=== PATIENT | female | born 1985 | race Caucasian/White ===

== ENCOUNTER 2020-07-30 20:37 | Emergency (ER) | payer OTHER, SELFPAY ==
[2020-07-30 20:52] VITALS: BP 145/88; PULSE 98; RESP 20; TEMP 36.7; O2SAT 99
--- NOTE | 2020-07-30 21:08 | ED.BACK ---
HPI - Back Pain/Injury General Chief Complaint: Back Pain/Injury Stated Complaint: back pain Time Seen by Provider: 07/30/20 21:00 Source: RN notes reviewed History of Present Illness HPI Narrative: Patient presents to emergency department from home for low back pain. Patient states approximately 6 PM tonight at work her left leg slipped on some water and twisted her back. She states she did not fall to the ground and did not have any direct injury to the back. She notes pain in the bilateral lower back with pain rating to the left buttocks she denies any fevers or chills abdominal pain numbness or tingling in the extremities bowel or bladder incontinence or any other symptoms. She denies any chance of . Patient took no pain medication at home. States she drove herself to the emergency department Related Data Allergies Allergy/AdvReac Type Severity Reaction Status Date / Time No Known Allergies Allergy Unverified 02/13/12 23:04 Review of Systems Review of Systems: Narrative: Gen.: Denies fevers or chills ENT: Denies congestion Respiratory: Denies shortness of breath CV: Denies chest pain GI: Denies abdominal pain nausea, emesis denies bowel or bladder incontinence Musculoskeletal: See HPI Neuro: Denies numbness, tingling, weakness or focal weakness Skin: Denies rash Except as documented, all other systems reviewed and negative PMFSH Past Medical History Medical History (Updated 07/30/20 @ 21:10 by Kulwinder Mera DO) Patient denies significant medical history Social History Social History (Updated 07/30/20 @ 21:09 by Kulwinder Mera DO) Smoking status: Never smoker Gender identity (if verbalized by the patient): Male Exam Narrative: Exam Narrative: APPEARANCE: No acute distress, nontoxic, resting in bed Eyes: EOMI HEENT: Normocephalic, atraumatic, CV: Regular rate and rhythm without murmur RESPIRATORY: No respiratory distress. Clear to auscultation bilaterally. Abdomen: Soft and nontender, no rebound or guarding MUSCULOSKELETAl: Moves all extremities, no clubbing cyanosis or edema Back: No midline lumbar tenderness to palpation or step-off, tender to palpation over bilateral paravertebral muscles L3-5 , pain increased with forward flexion NEURO: Awake and alert. Following commands, speech normal, no focal deficits, muscle strength 5 out of 5 bilateral lower extremities, bilateral patellar reflex 2+ SKIN:: Warm, dry. Normal Color no rash or lesions Course Course Emergency Course: Discussed with patient results of workup and diagnosis. Discussed need for follow-up with primary care, proper use of medication, and reasons to return to the emergency department. Patient understands and agrees to current treatment plan Vital Signs Vital signs: Vital Signs Temperature 98.0 F 07/30/20 20:52 Pulse Rate 98 07/30/20 20:52 Respiratory Rate 20 07/30/20 20:52 Blood Pressure 145/88 H 07/30/20 20:52 Pulse Oximetry 99 07/30/20 20:52 Temperature 98.0 F 07/30/20 20:52 Pulse Rate 98 07/30/20 20:52 Respiratory Rate 20 07/30/20 20:52 Blood Pressure 145/88 H 07/30/20 20:52 Pulse Oximetry 99 07/30/20 20:52 Discharge Plan Discharge Clinical Impression: Low back pain Patient Disposition: Home, Self-Care Condition: Stable Instructions: Antibiotic Form, Acute Low Back Pain (ED) Additional Instructions: Return for increasing pain numbness or tingling in the extremities bowel or bladder incontinence or any other symptoms of concern Prescriptions: New cyclobenzaprine 10 mg tablet 10 mg PO TID PRN (Reason: muscle spasm) Qty: 10 RF: 0 ibuprofen [IBU] 600 mg tablet 600 mg PO Q6H PRN (Reason: pain) Qty: 20 RF: 0 Follow-up/Referrals: PHYSICIAN,EMPLOYEE WELFARE MANAGER [Primary Care Provider] - Chay Maurer MD [Physician] - (Follow-up in 1-2 days for further on-call physician treatment and evaluation) Stand Alone Forms: Work/School Release IP Time of Dispos
[2020-07-30] MEDS: IBUPROFEN 600 MG TABLET PO (21:26)
== END 2020-07-30 21:29 | disposition home or self-care (01) ==
LOC: ANHED 21:13
PROVIDERS: Emergency Provider Emergency Medicine
DX: M54.5 Low back pain (principal)
CPT/HCPCS: 99283; A9270